=== PATIENT | male | born 1985 | race Caucasian/White ===

== ENCOUNTER 2023-01-18 15:35 | Emergency (ER) | payer OTHER, SELFPAY ==
--- NOTE | ~2023-01-18 | XR_ITS ---
EXAMINATION: XR foot RT min 3V DATE: 01/18/2023 16:16 INDICATION: Right foot pain TECHNIQUE: Dorsoplantar, lateral, and 2 oblique views of the right foot were obtained. COMPARISON: None. FINDINGS: Bone alignment is normal. There is no fracture. The joint spaces are normal. There is mild dorsal soft tissue swelling of the distal foot overlying the metatarsals. IMPRESSION: 1. No acute osseous abnormality. Reviewed, dictated and finalized at location F.
[2023-01-18 16:07] VITALS: BP 137/90; PULSE 75; RESP 18; TEMP 36.6; O2SAT 99
--- NOTE | 2023-01-18 16:08 | ED.GENADULT ---
HPI - General Adult General Chief complaint: Extremity Injury, Lower Stated complaint: foot injury Time Seen by Provider: 01/18/23 16:09 Source: patient Mode of arrival: ambulatory Limitations: no limitations History of Present Illness HPI narrative: 37-year-old male patient presents to the [facility] with complaints of right foot pain. Patient states that a large dust fell on the lateral part of his right foot yesterday. Patient states he has been limping on the foot today. Patient did take 200 mg of ibuprofen and did ice it yesterday. Review of Systems Review of Systems: CONSTITUTIONAL: Denies fever, chills, or sweats. EYES: Denies visual changes, redness, or discharge. ENT: Denies rhinorrhea, congestion, sore throat, or otalgia. CARDIOVASCULAR: Denies chest pain, palpitations, or edema. RESPIRATORY: Denies cough or dyspnea. GASTROINTESTINAL: Denies abdominal pain, nausea, vomiting, or diarrhea. GENITOURINARY: Denies dysuria or hematuria. SKIN: Denies rash or itching. MUSCULOSKELETAL: Denies back pain, joint pain, or myalgia. Right foot pain NEUROLOGIC: Denies headache, numbness, or weakness. PSYCHIATRIC: Denies anxiety or depression. PMFSH Comments At the time of my signature I agree with nursing past medical history, surgical, social, and family history. There is no relevant family history pertinent to the presenting complaint. Exam Narrative: GENERAL: Well-appearing, well-nourished, and in no acute distress. HEAD: Normocephalic, atraumatic. EYES: PERRLA and EOMI. ENT: Nares clear, no rhinorrhea or epistaxis. Mucous membranes moist. NECK: Supple. No lymphadenopathy CHEST: Clear to auscultation. No respiratory distress. HEART: Regular rate and rhythm. No murmur heard. Normal peripheral pulses. ABDOMEN: Soft, nontender, nondistended, normal active bowel sounds. EXTREMITIES: Patient able to bear weight and ambulate with pain. there is a small abrasion noted to the top of the right foot. There is some bruising noted in between the 3rd 4th and 5th toes. The R foot is without obvious asymmetry or deformity when compared to the L foot. No bony step-off, nontender to palpation over the toes, Tender over the lateral midfoot , no tenderness over the hindfoot or sole. Normal plantar/dorsiflexion, inversion/eversion. Distal motor and neurovascular status are intact SKIN: Warm, dry, no rash. NEURO: No focal deficits. Alert and oriented x3. Course Course Level of Care: Express Care Visit Vital Signs Vital signs: Vital Signs Temperature 36.6 C 01/18/23 16:07 Pulse Rate 75 01/18/23 16:07 Respiratory Rate 18 01/18/23 16:07 Blood Pressure 137/90 01/18/23 16:07 Pulse Oximetry 99 01/18/23 16:07 Oxygen Delivery Room Air 01/18/23 16:07 Temperature 36.6 C 01/18/23 16:07 Pulse Rate 75 01/18/23 16:07 Respiratory Rate 18 01/18/23 16:07 Blood Pressure 137/90 01/18/23 16:07 Pulse Oximetry 99 01/18/23 16:07 Oxygen Delivery Room Air 01/18/23 16:07 Vital signs reviewed. Medical Decision Making MDM Narrative Medical decision making narrative: plan care for patient is discharge home with a postop shoe and Eh wrap. Encouraged patient to take Tylenol, ibuprofen for pain, elevate the foot and ice it. Differential Diagnosis Differential Diagnosis: Differential diagnosis: Foot fracture, crush injury, compartment syndrome, contusion, sprain, tendinitis,lisfranc sprain or fracture, avulsion fracture, grown toenail, diabetic ulcer. Vital Signs Vital Signs: Vital Signs Temperature 36.6 C 01/18/23 16:07 Pulse Rate 75 01/18/23 16:07 Respiratory Rate 18 01/18/23 16:07 Blood Pressure 137/90 01/18/23 16:07 Pulse Oximetry 99 01/18/23 16:07 Oxygen Delivery Room Air 01/18/23 16:07 Temperature 36.6 C 01/18/23 16:07 Pulse Rate 75 01/18/23 16:07 Respiratory Rate 18 01/18/23 16:07 Blood Pressure 137/90 01/18/23 16:07 Pulse Oximetry 99 01/18/23 16:
== END 2023-01-18 16:23 | disposition home or self-care (01) ==
PROVIDERS: Emergency Provider Nurse Practitioner Family
DX: S90.31XA Contusion of right foot, initial encounter (principal); W20.8XXA Other cause of strike by thrown, projected or falling object, initial encounter
CPT/HCPCS: 73630; 99213; G0463